=== PATIENT | male | born 1955 | race Asian ===

== ENCOUNTER 2018-04-19 14:09 | Emergency (ER) | payer SELFPAY, OTHER ==
[2018-04-19] MEDS: GENTAMICIN 0.3% OPHTH SOL 5 ML BTL OS (16:09)
== END 2018-04-19 16:14 | disposition home or self-care (01) ==
LOC: M ED 14:09
DX: H10.32 Unspecified acute conjunctivitis, left eye (principal)
CPT/HCPCS: 99283